=== PATIENT | male | born 1950 | race Caucasian/White ===

== ENCOUNTER → 2016-11-29 | Outpatient (CLI) | payer MEDICARE, OTHER ==
[~2016-11-29] MED LIST: ALLO100T PO; ASPI-630 PO; BUPIVACAINE MPF 0.25% 10 ML VIAL. ONE; CARV25TA2 PO; INSU100V13 SQ; LIDOCAINE 1% PF 30 ML VIAL. ONE; LOSA25TA4 PO; METF10002 PO; MULT-121 PO; OMEP40CA5 PO; POTA20PA PO; SIMVISTATIN; SPIR1TAB3 PO; TORS100T3 PO; methylPREDNISolone ACETATE 40 MG/ML VIAL. ONE
== END | disposition home or self-care (01) ==
LOC: SURG 11-26 14:18
PROVIDERS: ATTEND Anesthesiology Pain Medicine
DX: M47.816 Spondylosis without myelopathy or radiculopathy, lumbar region (principal); I10 Essential (primary) hypertension; M19.91 Primary osteoarthritis, unspecified site; E11.9 Type 2 diabetes mellitus without complications; Z88.1 Allergy status to other antibiotic agents
CPT/HCPCS: 64493; 64494; J1030; J2001; J3490